=== PATIENT | female | born 1930 | race Caucasian/White ===

== ENCOUNTER 2016-04-25 16:38 | Emergency (ER) | payer MEDICARE ==
[2016-04-25] MEDS ORDERED: SODIUM CHLORIDE 0.9% 1,000 ML ONE (17:24)
[2016-04-25] MEDS ORDERED: Meclizine HCl 25 MG TAB ONE (19:22)
== END 2016-04-25 19:41 | disposition home or self-care (01) ==
LOC: ER 16:38
CPT/HCPCS: 36415; 70450; 71010; 80053; 81001; 82553; 82947; 84484; 85025; 93005; 96360